=== PATIENT | male | born 1965 | race Caucasian/White ===

== ENCOUNTER 2016-06-01 10:33 | Emergency (ER) | payer SELFPAY ==
--- NOTE | 2016-06-01 11:07 | RAD ---
Exam: Two-view chest COMPARISON: None INDICATION: Cough, fever and shortness of breath for 3 days. Findings: PA and lateral views of the chest were obtained. Lateral view is limited due to motion artifact. Cardiac silhouette is within normal limits. There is minor elevation the lateral left hemidiaphragm. There is minor linear opacity within the left midlung zone which may be related to scarring. This is only seen on the PA view. There is a small opacity which projects through the right heart border on the PA view without correlating abnormality on the lateral view which could potentially reflect a small focus of airspace disease. Minor linear opacity within the right midlung zone is also noted on the PA view, may reflect scarring or atelectasis. Bones of the chest wall within normal limits. IMPRESSION: Small opacity which projects along the medial right cardiophrenic angle which could reflect small focus of pneumonia in the correct clinical setting.
[2016-06-01] MEDS ORDERED: LACTATED RINGERS 1,000 ML ONE (12:16)
[2016-06-01 12:31] LABS: BASO # 0.1 K/mm3 (0.0-0.2); BASO % 0.5 % (0.2-1.0); HEMATOCRIT 49.7 % (32.0-52.0); HEMOGLOBIN 16.5 gm/l (14.0-18.0); IMM NEUT% 0.4 % (0-1); LYMPH # 1.7 (1.0-4.8); LYMPH % 14.9 % (15-45); MEAN CELL VOLUME 88.6 fl (80.0-94.0); MEAN CORPUSCULAR HEMOGLOBIN 29.4 pg (27.0-31.0); MEAN CORPUSCULAR HGB CONC 33.2 g/dl (33.0-37.0); MEAN PLATELET VOLUME 9.7 fl (7.4-10.4); MONO # 1.6 (0.0-0.8); MONO % 13.7 % (4-12); NEUT % 70.5 % (43-75); PLATELET COUNT 181 K/mm3 (130-400); RED CELL DISTRIBUTION WIDTH 15.3 % (11.5-14.5)
[2016-06-01 12:50] LABS: ALBUMIN 3.9 gm/dL (3.5-5.7)
== END 2016-06-01 13:40 | disposition home or self-care (01) ==
LOC: ED 10:33
DX: J18.9 Pneumonia, unspecified organism (principal); Z87.891 Personal history of nicotine dependence
CPT/HCPCS: 85025; 80053; 71020; 87804; 99284; 99283; J7120